=== PATIENT | female | born 1995 | race African-American/Black ===

== ENCOUNTER 2018-08-09 16:12 | Inpatient (IN) ==
[2018-08-09] MEDS ORDERED: hydrALAZINE 20 MG/1 ML VIAL IV ONE (16:55)
[2018-08-09] MEDS: LABETALOL 200 MG TABLET PO SCH (19:50)
[2018-08-09] MEDS ORDERED: FAMOTIDINE 20 MG/2 ML VIAL IV PRN (20:22)
[2018-08-09] MEDS ORDERED: CITRIC ACID/SODIUM CITRATE 30 ML UDCUP PO PRN (20:22)
[2018-08-09] MEDS ORDERED: ceFAZolin 2,000 MG in PREMIX 1 EACH IV PRN (20:22)
[2018-08-09] MEDS ORDERED: OXYTOCIN/LR 20 UNIT/1,000 ML BAG IV PRN (20:29)
[2018-08-09] MEDS ORDERED: OXYTOCIN/LR 30 UNIT/1,000 ML BAG IV PRN (20:29)
[2018-08-10] MEDS: LABETALOL 200 MG TABLET PO SCH (03:56)
[2018-08-10 04:07] LABS: Basophils % 0.2 % (0.0-0.8); Eosinophils % 0.5 % (0.00-10.9); Hematocrit 30.7 VOL% (35.7-47.0); Hemoglobin 9.3 GM/DL (12.0-16.0); Immature Granulocytes % 0.9 %; Immature Granulocytes Absolute 0.08 #; Lymphocytes # 2.1 10*3/uL (1.4-4.0); Lymphocytes % 23.8 % (21.3-54.2); Mean Corpuscular HGB Conc 30.3 GM/DL (32-36); Mean Corpuscular Volume 90.6 FL (87-102); Mean Platelet Volume 11.9 FL (9.6-12.0); NRBC # 0.02 10*3/uL; Neutrophils % 66.6 % (38.7-73.9); Platelet Count 192 T/CUMM (130-400); Red Blood Count 3.39 MC/CUMM (3.8-5.5); Red Cell Distribution Width 16.2 % (9.3-17.3); White Blood Count 8.6 T/CUMM (4-12)
[2018-08-10 04:16] LABS: INR 0.9; PT Patient Result 9.4 SECS; Partial Thromboplastin Time 25.2 SECS (0-40)
[2018-08-10 04:38] LABS: Alanine Aminotransferase 12 U/L (13-56); Albumin 2.3 G/DL (3.4-5.0); Alkaline Phosphatase 137 U/L (45-117); Aspartate Amino Transferase 15 U/L (0-37); Bilirubin,Total < 0.39 MG/DL (0.2-1.0); Blood Urea Nitrogen 10 MG/DL (7-18); Calcium 8.3 MG/DL (8.5-10.1); Glucose 83 MG/DL (74-106); Osmolality,Calculated 274.5 MOS/KG (273-304)
[2018-08-10] MEDS: LACTATED RINGERS 1,000 ML IV SCH ×4 (06:45→16:48)
[2018-08-10] MEDS ORDERED: OXYTOCIN 10 UNIT/ML VIAL IM ONE (07:23)
[2018-08-10] MEDS ORDERED: miSOPROStol 200 MCG TABLET ONE (07:56)
[2018-08-10] MEDS ORDERED: CARBOPROST TROMETHAMINE 250 MCG/ML AMP IM ONE (07:56)
[2018-08-10] MEDS ORDERED: METHYLERGONOVINE 0.2 MG/1 ML AMP ONE (07:56)
[2018-08-10] MEDS ORDERED: BUPIVACAINE SPINAL 0.75% 2 ML AMP SPINAL ONE ×2 (08:41→10:23)
[2018-08-10] MEDS ORDERED: HYDROmorphone 2 MG/1 ML VIAL IV PRN (10:15)
[2018-08-10] MEDS ORDERED: hydrOXYzine HCL 25 MG/1 ML VIAL IM PRN (10:15)
[2018-08-10] MEDS ORDERED: ONDANSETRON 4 MG/2 ML VIAL IV PRN ×2 (10:15→10:29)
[2018-08-10] MEDS ORDERED: diphenhydrAMINE 50 MG/1 ML VIAL IV PRN (10:15)
[2018-08-10] MEDS ORDERED: fentaNYL 100 MCG/2 ML VIAL ONE (10:22)
[2018-08-10] MEDS ORDERED: DEXAMETHASONE 4 MG/1 ML VIAL ONE (10:23)
[2018-08-10] MEDS ORDERED: MORPHINE 10 MG/10 ML VIAL ONE (10:23)
[2018-08-10] MEDS ORDERED: KETOROLAC 30 MG/1 ML VIAL ONE (10:23)
[2018-08-10] MEDS ORDERED: PROPOFOL 200 MG/20 ML VIAL IV ONE (10:23)
[2018-08-10] MEDS ORDERED: SUCCINYLCHOLINE 200 MG/10 ML VIAL ONE (10:24)
[2018-08-10] MEDS: hydrALAZINE 20 MG/1 ML VIAL IV SCH ×2 (10:27→10:56)
[2018-08-10] MEDS ORDERED: RHO(D) IMMUNE GLOBULIN 300 MCG SYRINGE IM ONE (10:29)
[2018-08-10] MEDS ORDERED: OXYTOCIN/LR 20 UNIT/1,000 ML BAG IV ONE (10:29)
[2018-08-10] MEDS ORDERED: ACETAMINOPHEN 325 MG TABLET PO PRN (10:29)
[2018-08-10 10:42] LABS: Apearance,Urine CLEAR (Clear); Bilirubin,Urine Negative (Negative); Blood, Urine Negative (Negative); Glucose,Urine (UA) Negative (Negative); Ketones,Urine Negative (Negative); Mucus,Urine Occasional /LPF (Occasional); Nitrite,Urine Negative (Negative); Protein,Urine 30 MG/DL; RBC,Urine 2 /HPF (0-4); Squamous Epithelial Cell,Urine Occasional /HPF (0-10); Urine Color Yellow (Yellow); Urine Specific Gravity 1.012 (1.001-1.035); Urine Urobilinogen < 2.0 EU/DL (0.2-1.0); WBC,Urine 1 /HPF (0-6)
[2018-08-10] MEDS ORDERED: ACETAMINOPHEN 500 MG TABLET PO SCH (14:00)
[2018-08-10] MEDS ORDERED: KETOROLAC 30 MG/1 ML VIAL IV SCH (16:00)
[2018-08-10] MEDS: ceFAZolin 1,000 MG in SYRINGE 1 EACH IV SCH (17:59)
[2018-08-10 18:59] LABS: Basophils % 0.1 % (0.0-0.8); Hematocrit 22.1 VOL% (35.7-47.0); Hemoglobin 6.9 GM/DL (12.0-16.0); Immature Granulocytes % 0.7 %; Lymphocytes # 1.4 10*3/uL (1.4-4.0); Lymphocytes % 9.2 % (21.3-54.2); Mean Corpuscular HGB Conc 31.2 GM/DL (32-36); Mean Corpuscular Volume 90.6 FL (87-102); Mean Platelet Volume 12.1 FL (9.6-12.0); Monocytes % 3.2 % (1.7-12.7); Neutrophils % 86.8 % (38.7-73.9); Platelet Count 219 T/CUMM (130-400); Red Blood Count 2.44 MC/CUMM (3.8-5.5); Red Cell Distribution Width 16.2 % (9.3-17.3)
[2018-08-10 19:01] LABS: White Blood Count 14.7 T/CUMM (4-12)
[2018-08-10] MEDS ORDERED: SODIUM CHLORIDE 0.9% 1,000 ML IV PRN (20:49)
[2018-08-10] MEDS: DOCUSATE SODIUM 100 MG CAPSULE PO SCH (20:52)
[2018-08-10] MEDS ORDERED: FUROSEMIDE 20 MG/2 ML VIAL IV ONE (20:53)
[2018-08-11] MEDS: ceFAZolin 1,000 MG in SYRINGE 1 EACH IV SCH (04:51)
[2018-08-11] MEDS: LACTATED RINGERS 1,000 ML IV SCH (05:59)
[2018-08-11 07:46] LABS: Basophils % 0.1 % (0.0-0.8); Hematocrit 24.3 VOL% (35.7-47.0); Hemoglobin 8.1 GM/DL (12.0-16.0); Immature Granulocytes % 0.4 %; Immature Granulocytes Absolute 0.05 #; Lymphocytes # 2.4 10*3/uL (1.4-4.0); Lymphocytes % 20.8 % (21.3-54.2); Mean Corpuscular HGB Conc 33.3 GM/DL (32-36); Mean Corpuscular Volume 90.3 FL (87-102); Mean Platelet Volume 11.6 FL (9.6-12.0); Monocytes % 6.9 % (1.7-12.7); Neutrophils % 71.8 % (38.7-73.9); Platelet Count 185 T/CUMM (130-400); Red Blood Count 2.69 MC/CUMM (3.8-5.5); Red Cell Distribution Width 15.5 % (9.3-17.3); White Blood Count 11.6 T/CUMM (4-12)
[2018-08-11] MEDS: METOCLOPRAMIDE 10 MG TABLET PO SCH ×2 (10:04→18:32)
[2018-08-11] MEDS: SIMETHICONE CHEW 80 MG TABLET PO PRN ×2 (10:04→15:38)
[2018-08-11] MEDS: MAGNESIUM HYDROXIDE SUSP 30 ML UDCUP PO PRN ×2 (10:04→20:29)
[2018-08-11] MEDS: DOCUSATE SODIUM 100 MG CAPSULE PO SCH ×2 (10:04→20:29)
[2018-08-11] MEDS: MULTIVITAMIN (PRENATAL) TABLET PO SCH (10:05)
[2018-08-11] MEDS: IBUPROFEN 800 MG TABLET PO PRN (15:38)
[2018-08-11] MEDS: FERROUS SULFATE 325 MG TABLET PO SCH (20:29)
[2018-08-12] MEDS: METOCLOPRAMIDE 10 MG TABLET PO SCH ×2 (01:20→09:10)
[2018-08-12] MEDS: IBUPROFEN 800 MG TABLET PO PRN (04:04)
[2018-08-12 07:20] VITALS: BP 146/75
[2018-08-12] MEDS: MAGNESIUM HYDROXIDE SUSP 30 ML UDCUP PO PRN (09:09)
[2018-08-12] MEDS: DOCUSATE SODIUM 100 MG CAPSULE PO SCH (09:09)
[2018-08-12] MEDS: MULTIVITAMIN (PRENATAL) TABLET PO SCH (09:09)
[2018-08-12] MEDS: SIMETHICONE CHEW 80 MG TABLET PO PRN (09:09)
[2018-08-12] MEDS: FERROUS SULFATE 325 MG TABLET PO SCH (09:09)
[2018-08-12] MEDS ORDERED: BISACODYL 10 MG SUPP RECTAL PRN (11:49)
[2018-08-12] MEDS ORDERED: DIPH/TET/ACEL PERT BOOSTER VACCINE 0.5 ML VIAL IM ONE (15:41)
== END 2018-08-12 16:40 | disposition home or self-care (01) | DRG 540 ==
LOC: N.LDOUT 16:12 → N.LD 16:18 → N.OB 08-10 16:27
PROVIDERS: ADMIT Obstetrics & Gynecology; ATTEND Obstetrics & Gynecology
PROC: LDCSECT (ICD-10-PCS; 2018-08-10 08:30)